=== PATIENT | female | born 1980 | race Caucasian/White ===

== ENCOUNTER 2020-11-09 12:21 | Observation (INO) ==
[2020-11-09] MEDS ORDERED: RINGER'S SOLUTION,LACTATED 1,000 ML IV PRN ×2 (12:58→15:18)
[2020-11-09 13:09] LABS: Urine Bilirubin 1 mg/dl (NEGATIVE); Urine Blood Negative /ul (NEGATIVE); Urine Ketone 5 mg/dL (NEGATIVE); Urine Nitrite Negative (NEGATIVE); Urine Protein 30 mg/dL (NEGATIVE); Urine Specific Gravity 1.025 SP.GR. (1.005-1.010); Urine pH 6.5 pH (5.0-7.0)
[2020-11-09 13:19] LABS: Urine Appearance Slightly Cloudy (CLEAR); Urine Bacteria 1+; Urine Color Dark Yellow; Urine RBC None Seen /hpf (0-5); Urine WBC TRACE /hpf (0-5)
[2020-11-09 13:28] LABS: Cocaine Ur Negative (NEGATIVE); Urine Barbiturate Negative (NEGATIVE); Urine Opiates Negative (NEGATIVE); Urine PCP Negative (NEGATIVE); Urine THC Negative (NEGATIVE)
[2020-11-09 13:30] VITALS: BP 126/87
[2020-11-09 13:30] LABS: Urine Benzodiazepines Positive (NEGATIVE)
[2020-11-09 14:30] LABS: Mean Cell Volume 84.9 fl (78-100); Mean Corpuscular Hemoglobin 27.4 pg (27-31); Mean Corpuscular Hgb Conc 32.3 g/dl (32-36); Mean Platelet Volume 10.5 fl (8-12.5); Neutrophil % 70.2 % (42-75.0); Platelet Count 245 K/mm3 (150-450); Red Blood Count 3.65 M/mm3 (4.2-5.4); Red Cell Distribution Width 17.2 % (11.5-14.0); White Blood Count 9.9 K/mm3 (4.0-10.5)
[2020-11-09 14:47] LABS: TSH * 1.525 uIU/mL (0.358-3.74)
[2020-11-09] MEDS ORDERED: RINGER'S SOLUTION,LACTATED 1,000 ML IV ONE (15:18)
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
[2020-11-09] MEDS ORDERED: BETAMETHASONE ACETATE,SOD PHOS 6 MG/ML VIAL IM STA (16:42)
[2020-11-09] MEDS ORDERED: DEXTROSE 5%-LACTATED RINGERS 1,000 ML IV PRN (16:47)
[2020-11-09] MEDS ORDERED: clonazePAM 1 MG TABLET PO PRN (16:49)
[2020-11-09] MEDS ORDERED: traZODone HCL 150 MG TABLET PO PRN (16:49)
--- NOTE | 2020-11-09 16:58 | PN ---
Progess Note - Interim Date: 11/09/20 Time: 16:51 Narrative: 11/09/20 16:51 Discussed with patient recommendations made by MFM NPO now Switch IVF to D5LR since the patient has not had anything to eat for 5 days COVID-19 test not indicated since the patient has had COVID within the last 3 months The patient is hypertensive in the mild range. Check CMP and UP:CR
[2020-11-09] MEDS ORDERED: PROPRANOLOL HCL 60 MG CAPSULE.SA PO SCH (17:00)
--- NOTE | 2020-11-09 17:07 | PN ---
Progess Note - Interim Date: 11/09/20 Time: 17:05 Narrative: 11/09/20 17:05 Betamethasone 12 mg IM administered should delivery occur
[2020-11-09 17:12] LABS: Albumin * 2.1 gm/dl (3.4-5.0); Anion Gap 13.1 mmol/L (6.8-13.8); BUN/Creatinine Ratio 4.9 (9.0-21.6); Bilirubin, Total 0.2 mg/dL (0.0-1.1); Ca. Corrected For Albumin 9.3 mg/dL (8.4-10.2); Calcium * 8.1 mg/dL (7.9-10.9); Carbon Dioxide 22.5 mmol/L (24-32.6); Potassium 2.6 mmol/L (3.4-4.6); Total Protein 5.4 gm/dL (6.2-8.2)
[2020-11-09 17:20] LABS: Random Urine Total Protein 80.5 mg/dL (0-12)
[2020-11-09] MEDS ORDERED: POTASSIUM CHLORIDE 20 MEQ TABLET.SA PO ONE (17:38)
[2020-11-09] MEDS: POTASSIUM CHLORIDE IN WATER 100 ML IV SCH ×4 (17:40→20:35)
--- NOTE | 2020-11-09 17:54 | CONS ---
HPI - General Date of Service: 11/09/20 Source: patient - History of Present Illness Initial Comments: Patient presented to the ED after not eating for several days. She is 38w1d , and hadn't felt the baby move for 3 days. She was diagnosed with COVID last month, and has recovered. She had vomiting and diarrhea at that time, but none in the last week. No recent med changes. Workup in the ED showed a potassium level of 2.6. She does not take diuretics. Low protein at 5.4, and low albumin at 2.1. Consulted for hypokalemia management. Allergies/Adverse Reactions: Allergies baclofen Allergy (Verified 11/09/20 12:40) Migraine Vomiting Home Medications: Home Medications Medication Instructions Recorded Last Taken levothyroxine 75 mcg capsule 75 mcg PO DAILY #30 cap 08/11/20 11/08/20 lisdexamfetamine 40 mg capsule 40 mg PO DAILY #30 cap 10/25/20 11/08/20 brexpiprazole 4 mg tablet 4 mg PO HS #30 tab 11/03/20 11/08/20 propranolol 60 mg capsule,24 See Rx Instructions .ROUTE 11/03/20 Unknown hr,extended release .COMPLEX #30 unknown measurement unit code: capsule Clonazepam 1 mg PO BID PRN 11/09/20 11/08/20 Vits96/Iron Fum/Folic 1 tab PO DAILY 11/09/20 Unknown [ S] blood sugar diagnostic See Rx Instructions .ROUTE 11/09/20 Unknown .MEDSUPPLY #100 ea blood-glucose meter See Rx Instructions .ROUTE 11/09/20 Unknown .MEDSUPPLY #1 ea lancets 28 gauge See Rx Instructions .ROUTE 11/09/20 Unknown .MEDSUPPLY #100 ea traZODone HCL [Trazodone HCl] 1 tab PO HS PRN 11/09/20 Unknown Medications - Medications Current Medications: Current Medications Lactated Ringer's (Lactated Ringers) 1,000 mls @ 999 mls/hr IV .Q1H1M PRN PRN Reason: HYDRATION Stop: 12/09/20 12:59 Last Infusion: 11/09/20 14:20 Dose: Infused Documented by: Dextrose/Lactated Ringer's (Dextrose 5%-Lr) 1,000 mls @ 125 mls/hr IV .Q8H PRN PRN Reason: HYDRATION Stop: 12/09/20 16:48 Last Admin: 11/09/20 16:50 Dose: 125 mls/hr Documented by: Propranolol HCl (Propranolol Hcl 60 Mg Capsule.Sa) 60 mg PO DAILY FREIDA Stop: 12/09/20 17:01 Last Admin: 11/09/20 17:01 Dose: Not Given Documented by: Review of Systems - Review of Systems Generalized/Overall Review: Absent: Fever Respiratory: Absent: Shortness of Breath Cardiac: Absent: Chest Pain, Edema Abdominal: Absent: Nausea, Vomiting, Abdominal Pain Genitourinary: Present: No Symptoms Reported Physical Examination - Exam Vital Signs: Vital Signs - Last Taken Temp 36.9 C 11/09/20 14:08 Pulse 91 11/09/20 12:40 Resp 16 11/09/20 12:40 BP 126/87 11/09/20 12:40 Pulse Ox 100 11/09/20 12:40 O2 Oxygen Delivery Method Room Air Constitutional: Present: Alert, Cooperative, No distress Respiratory: Present: normal breath sounds, no accessory muscle use Cardiovascular/Chest: Present: regular rate, rhythm Abdomen: Present: other - gravid Extremity: Absent: lower extremity edema Eye contact: Present: cooperative, good eye contact - Results and Findings: Lab/Microbiology results last 24 hrs: Abnormal/Pending Laboratory Last 24 HRS 11/09/20 11/09/20 11/09/20 14:16 14:16 14:16 RBC Hgb Hct RDW Immature Gran # (Auto) Neutrophils # Potassium 2.6 L D Carbon Dioxide 22.5 L BUN/Creatinine Ratio 4.9 L Random Glucose 171 H Glucose 1 Hr 50 gm 176 H Ferritin 5 L ALT 12 L Total Protein 5.4 L Albumin 2.1 L Urine Protein Urine Bilirubin Urine Urobilinogen Ur Leukocyte Esterase Urine WBC Ur Epithelial Cells Urine Bacteria Ur Random Creatinine U Random Total Protein Urine Amphetamine U Benzodiazepines Scrn 11/09/20 11/09/20 11/09/20 14:16 12:50 12:50 RBC 3.65 L Hgb 10.0 L Hct 31.0 L RDW 17.2 H Immature Gran # (Auto) 0.04 H Neutrophils # 7.0 H Potassium Carbon Dioxide BUN/Creatinine Ratio Random Glucose Glucose 1 Hr 50 gm Ferritin ALT Total Protein Albumin Urine Protein Urine Bilirubin Urine Urobilinogen Ur Leukocyte Esterase Urine WBC Ur Epithelial Cells Urine Bacteria Ur Random Creatinine 420.6 H U Random Total Protein 80.5 H Urine Amphetamine Positive H U Benzodiazepines Scrn Positive H 11/09/20 12:50 RBC Hgb Hct RDW Immature Gran # (Auto) Neutrophils # Potassium Carbon Dioxide BUN/Creatinine Ratio Random Glucose Glucose 1 Hr 50 gm Ferritin ALT Total Protein Albumin Urine Protein 30 H Urine Bilirubin 1 H Urine Urobilinogen 2.0 H Ur Leukocyte Esterase 25 H Urine WBC Trace H Ur Epithelial Cells >25 H Urine Bacteria 1+ H Ur Random Creatinine U Random Total Protein Urine Amphetamine U Benzodiazepines Scrn - Assessments/Findings (1) Hypokalemia Diagnosis(s): Potassium level of 2.6 today. She denies vomiting or diarrhea, and does not take diuretics. Likely source is recent poor po intake. Will administer 40 mEq IV KCl, and also 40 mEq dose of KDur. Will obtain EKG, and continue cardiac monitoring. She may be going for emergency later this evening. Will recheck her potassium in 2 hours. Problem: Acute
[2020-11-09 19:38] LABS: Anion Gap 8.3 mmol/L (6.8-13.8); BUN/Creatinine Ratio 1.8 (9.0-21.6); Calcium * 8.1 mg/dL (7.9-10.9); Carbon Dioxide 24.8 mmol/L (24-32.6); Estimated Creat Clear 137.4; Potassium 3.1 mmol/L (3.4-4.6)
[2020-11-09] MEDS ORDERED: BREXPIPRAZOLE 4 MG PO SCH (21:00)
--- NOTE | 2020-11-09 21:17 | DS ---
(1) 31 weeks gestation of Problem: Acute (2) Non-reactive NST (non-stress test) Problem: Acute (3) AMA (advanced maternal age) multigravida 35+ Problem: Acute Qualifiers: Trimester: third trimester Qualified Code(s): O09.523 - Supervision of elderly multigravida, third trimester (4) Rh(D) positive Problem: Acute (5) Normal Pap smear Problem: Acute (6) Attention deficit hyperactivity disorder Problem: Chronic Qualifiers: (7) Bipolar disorder Problem: Chronic Qualifiers: (8) Generalized anxiety disorder Problem: Chronic (9) Hypothyroid Problem: Chronic Qualifiers: Hypothyroidism type: acquired (10) History of 2019 novel coronavirus disease (COVID-19) Problem: Acute Date of Discharge:: 11/09/20 Hospital Course: Admitted for observation. BPP 06/25 but tracing still with minimal variability so patient transferred to [facility]. Procedures Performed: none Results and Findings: Lab Pending Results 11/09/20 12:50: Urine Color Dark yellow, Urine Appearance Slightly cloudy, Urine pH 6.5, Ur Specific [place] 1.025, Urine Protein 30 H, Urine Glucose (UA) Negative, Urine Ketones 5, Urine Blood Negative, Urine Nitrate Negative, Urine Bilirubin 1 H, Urine Urobilinogen 2.0 H, Ur Leukocyte Esterase 25 H, Urine RBC None seen, Urine WBC Trace H, Ur Epithelial Cells >25 H, Urine Bacteria 1+ H, Urine Culture Comments Culture to follow 11/09/20 12:50: Urine Opiates Screen Negative, Barbiturate Screen Negative, Ur Phencyclidine Scrn Negative, Urine Amphetamine Positive H, U Benzodiazepines Scrn Positive H, Urine Cocaine Screen Negative, Urine Marijuana (THC) Negative 11/09/20 12:50: Ur Random Creatinine 420.6 H, U Random Total Protein 80.5 H, U [place] Prot/Creat Ratio 191 11/09/20 14:16: WBC 9.9, RBC 3.65 L, Hgb 10.0 L, Hct 31.0 L, MCV 84.9, MCH 27.4, MCHC 32.3, RDW 17.2 H, Plt Count 245, MPV 10.5, Immature Gran % (Auto) 0.40, Immature Gran # (Auto) 0.04 H, Neutrophils % 70.2, Lymphocytes % 25.0, Monocytes % 3.2, Eosinophils % 1.0, Basophils % 0.2, Nucleated RBC % 0.0, Neutrophils # 7.0 H, Lymphocytes # 2.48, Monocytes # 0.3, Eosinophils # 0.1, Absolute Basophils 0.0 11/09/20 14:16: Glucose 1 Hr 50 gm 176 H, TSH 1.525 11/09/20 14:16: Ferritin 5 L 11/09/20 14:16: Sodium 138, Plasma Sodium 139, Potassium 2.6 L D, Chloride 105, Carbon Dioxide 22.5 L, Anion Gap 13.1, BUN 3 D, Creatinine 0.61, Est GFR (Non- Af Amer) 117 D, BUN/Creatinine Ratio 4.9 L, Random Glucose 171 H, Calcium 8.1, Calcium Adj for Albumin 9.3, Total Bilirubin 0.2, AST 14, ALT 12 L, Alkaline Phosphatase 110, Total Protein 5.4 L, Albumin 2.1 L 11/09/20 19:25: Sodium 137, Plasma Sodium 138, Potassium 3.1 L, Chloride 107 H, Carbon Dioxide 24.8, Anion Gap 8.3, BUN 1 L D, Creatinine 0.56, Est GFR (Non-Af Amer) 129, BUN/Creatinine Ratio 1.8 L, Random Glucose 148 H, Calcium 8.1 Disposition: Short Term Hospital Inpatient Condition: Stable Discharge Activity: Activity as tolerated Discharge Diet: General/regular food Referrals: Jovana Edwards DO [Primary Care Provider] - Complete Home Medications List: Complete Home Medication List: levothyroxine 75 mcg capsule 75 mcg PO DAILY #30 cap 08/11/20 lisdexamfetamine 40 mg capsule 40 mg PO DAILY #30 cap 10/25/20 brexpiprazole 4 mg tablet 4 mg PO HS #30 tab 11/03/20 propranolol 60 mg capsule,24 hr,extended release See Rx Instructions .ROUTE .COMPLEX #30 unknown measurement unit code: capsule 11/03/20 Clonazepam 1 mg PO BID PRN 11/09/20 Vits96/Iron Fum/Folic [ S] 1 tab PO DAILY 11/09/20 blood sugar diagnostic See Rx Instructions .ROUTE .MEDSUPPLY #100 ea 11/09/20 blood-glucose meter See Rx Instructions .ROUTE .MEDSUPPLY #1 ea 11/09/20 lancets 28 gauge See Rx Instructions .ROUTE .MEDSUPPLY #100 ea 11/09/20 traZODone HCL [Trazodone HCl] 1 tab PO HS PRN 11/09/20
[2020-11-10] MEDS ORDERED: LEVOTHYROXINE SODIUM 75 MCG TABLET PO SCH (07:00)
[2020-11-10] MEDS ORDERED: PRENATAL VITS96/IRON FUM/FOLIC 1 TAB TABLET PO SCH (09:00)
== END 2020-11-09 23:55 | disposition short-term general hospital (02) ==
LOC: ER 12:21 → OBCLINIC 12:30 → OB 12:30 → OBCLINIC 12:35
PROVIDERS: ADMIT Obstetrics & Gynecology; ATTEND Obstetrics & Gynecology
DX: Z3A.31 31 weeks gestation of pregnancy; D64.9 Anemia, unspecified; F90.9 Attention-deficit hyperactivity disorder, unspecified type; E87.6 Hypokalemia; O36.8130 Decreased fetal movements, third trimester, not applicable or unspecified; E03.9 Hypothyroidism, unspecified; F41.1 Generalized anxiety disorder; Z67.90 Unspecified blood type, Rh positive; Z86.19 Personal history of other infectious and parasitic diseases

== ENCOUNTER 2020-12-20 11:53 | Inpatient (IN) ==
[2020-12-20] MEDS ORDERED: ONDANSETRON 4 MG TAB.RAPDIS PO PRN (17:59)
[2020-12-20] MEDS ORDERED: BUTORPHANOL TARTRATE 2 MG/ML VIAL IV PRN ×2 (17:59)
[2020-12-20] MEDS ORDERED: MISOPROSTOL 100 MCG TABLET VG PRN (17:59)
[2020-12-20] MEDS ORDERED: RINGER'S SOLUTION,LACTATED 1,000 ML IV ONE (17:59)
[2020-12-20] MEDS ORDERED: LIDOCAINE HCL 50 ML VIAL PERI PRN (17:59)
[2020-12-20 18:56] LABS: Cocaine Ur Negative (NEGATIVE); Urine Barbiturate Negative (NEGATIVE); Urine Benzodiazepines Negative (NEGATIVE); Urine Opiates Negative (NEGATIVE); Urine PCP Negative (NEGATIVE); Urine THC Negative (NEGATIVE)
[2020-12-20] MEDS: ACETAMINOPHEN 325 MG TABLET PO PRN (19:49)
[2020-12-20 20:21] LABS: Albumin * 2.1 gm/dl (3.4-5.0); Anion Gap 12.5 mmol/L (6.8-13.8); BUN/Creatinine Ratio 4.4 (9.0-21.6); Bilirubin, Total 0.3 mg/dL (0.0-1.1); Ca. Corrected For Albumin 9.6 mg/dL (8.4-10.2); Calcium * 8.4 mg/dL (7.9-10.9); Carbon Dioxide 24.8 mmol/L (24-32.6); Potassium 3.3 mmol/L (3.4-4.6); Total Protein 5.6 gm/dL (6.2-8.2)
[2020-12-20] MEDS ORDERED: POTASSIUM CHLORIDE 20 MEQ TABLET.SA PO ONE (20:54)
[2020-12-20] MEDS: RINGER'S SOLUTION,LACTATED 1,000 ML IV PRN (21:02)
[2020-12-20 21:05] LABS: Random Urine Total Protein 37.1 mg/dL (0-12)
[2020-12-21] MEDS: OXYTOCIN/0.9 % SODIUM CHLORIDE 30 UNITS/500 ML BAG IV ONE (00:04)
[2020-12-21] MEDS: CALCIUM CARBONATE 500 MG TAB.CHEW PO PRN ×2 (00:04→07:39)
[2020-12-21] MEDS ORDERED: ONDANSETRON HCL/PF 2 MG/ML VIAL IV PRN (00:34)
[2020-12-21] MEDS ORDERED: NALOXONE HCL 1 MG/1 ML SYRG IV PRN (00:34)
[2020-12-21] MEDS ORDERED: BUPIVACAINE HCL/PF 30 ML VIAL EP SCH (00:45)
[2020-12-21] MEDS: RINGER'S SOLUTION,LACTATED 1,000 ML IV PRN ×3 (04:45→23:59)
[2020-12-21] MEDS ORDERED: hydrOXYzine PAMOATE 25 MG CAPSULE PO ONE (05:01)
[2020-12-21] MEDS ORDERED: hydrOXYzine PAMOATE 25 MG CAPSULE ONE (05:03)
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
--- NOTE | 2020-12-21 06:57 | ANES ---
Post Anesthesia Assessment - Vital Signs Vitals: Last Vital Signs Temp 36.5 C 12/20/20 18:45 Pulse 78 12/20/20 18:45 Resp 18 12/20/20 18:45 BP 142/91 H 12/20/20 18:45 Pulse Ox 99 12/20/20 18:45 Airway Patency: Normal - Mental Status Level Of Consciousness: Awake - N/V Assessment Nausea/Vomiting Presence: None Dehydration:: No
--- NOTE | 2020-12-21 06:57 | ANES ---
Anesthesia Procedure Note Procedure Note: ANESTHESIA PROCEDURE NOTE Date of Procedure: 12/21/2020. Time of procedure: 40. Performed by: Gerhard Rocha CRNA Registered Nurse Cardiac Telemetry: None. Preprocedure diagnosis: Active labor. Post procedure diagnosis: Same. Procedure: Insertion of labor epidural. Indications: The patient is a 40-year-old female in active labor requesting labor epidural for pain management. Findings: See below. Details of the procedure: The patient was placed in a sitting position. DuraPrep as well as Betadine swabs X3 was applied to the patient's back. Patient was then draped in a sterile fashion. Lidocaine 1% was infiltrated to the skin and subcutaneous tissues at the level of the L3-4 interspace. The epidural space was identified using a 18-gauge Tuohy needle with [id number] technique. Epidural catheter was inserted to a depth of 12 centimeters at skin. Negative test dose was elicited using 3 mL of 1.5% preservative-free lidocaine plus epinephrine 1 200,000. The epidural catheter was then taped and secured in place. A loading dose of 8 mL of 0.25% preservative-free bupivacaine was administered to the epidural catheter after negative aspiration for blood and CSF. EBL: Minimal. Fluids: N/A. Specimen: N/A. Post procedure condition: The patient tolerated the procedure well. No complications were noted. Thank you for this consultation. Gerhard Rocha CRNA
[2020-12-21] MEDS: ACETAMINOPHEN 325 MG TABLET PO PRN (07:39)
[2020-12-21] MEDS: BUPIVACAINE HCL/0.9 % NACL/PF 250 ML EP PRN ×2 (07:41→18:46)
[2020-12-21 07:52] LABS: Anion Gap 14.3 mmol/L (6.8-13.8); BUN/Creatinine Ratio 6.6 (9.0-21.6); Calcium * 8.1 mg/dL (7.9-10.9); Carbon Dioxide 22.5 mmol/L (24-32.6); Estimated Creat Clear 126.1; Potassium 3.8 mmol/L (3.4-4.6)
[2020-12-21] MEDS: diphenhydrAMINE HCL 50 MG/ML VIAL IV PRN ×2 (10:26→10:45)
[2020-12-21] MEDS: METOCLOPRAMIDE HCL 5 MG/ML VIAL IV PRN ×2 (10:26→10:45)
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
--- NOTE | 2020-12-21 20:02 | PN ---
Progess Note - Interim Date: 12/21/20 Time: 20: Narrative: 12/21/20 20:01 cvx 2/50/-2 AROM for a small amount of clear fluid FHT cat 1
[2020-12-22] MEDS: OXYTOCIN/0.9 % SODIUM CHLORIDE 30 UNITS/500 ML BAG IV ONE
--- NOTE | 2020-12-22 02:35 | OR ---
Operative Report - Dictated Report Narrative: Date of delivery: 12/22/20 Time of delivery: 210 Gender: male weight: 2547 grams APGARS: 07/27 Procedure: Description of the procedure: The patient progressed to complete dilation after rupture of membranes as well as pitocin administration. She delivered a viable male in KRISTINE presentation. A nuchal cord was noted which was loose and reduced prior to delivery of the shoulders. The shoulders delivered without any difficulty followed by the rest of the . Cord clamping was delayed for 60 seconds due to vigorous . The cord was clamped and cut. Cord blood was collected. A first degree perineal laceration was noted which was hemostatic and thus did not require repair. The placenta delivered by expression, intact, and without difficulty. Cytotec 1000 mcg given rectally due to uterine atony. Clots removed from just above the cervix but the uterus was not explored manually due to no further clots noted. The clots were approximately 50 mL. EBL: 350 mL Complications: none Specimens: cord blood, placenta History for Definition: * The number of deliveries resulting in a live the patient experienced prior to current hospitalization * The previous delivery of live twins or any live multiple gestation is considered one live event. *If primagravida or nulliparous is documented select zero for the number of previous live births. Live Events: 1
[2020-12-22] MEDS ORDERED: MISOPROSTOL 100 MCG TABLET RC ONE (02:40)
[2020-12-22] MEDS ORDERED: GLYCERIN/WITCH HAZEL LEAF 40 APPL BOX TP PRN (03:21)
[2020-12-22] MEDS ORDERED: BISACODYL 10 MG SUPP.RECT RC PRN (03:21)
[2020-12-22] MEDS ORDERED: HYDROcodone/ACETAMINOPHEN 1 EACH TABLET PO PRN (03:21)
[2020-12-22] MEDS ORDERED: OXYTOCIN/0.9 % SODIUM CHLORIDE 30 UNITS/500 ML BAG IV ONE (03:21)
[2020-12-22] MEDS ORDERED: HYDROCORTISONE 30 APPL TUBE TP PRN (03:21)
[2020-12-22] MEDS ORDERED: diphenhydrAMINE HCL 25 MG CAPSULE PO PRN (03:21)
[2020-12-22] MEDS ORDERED: BENZOCAINE/MENTHOL 81 SPRAY CAN TP PRN (03:21)
[2020-12-22] MEDS ORDERED: SENNOSIDES 8.6 MG TABLET PO PRN (03:21)
[2020-12-22] MEDS: HYDROcodone/ACETAMINOPHEN 1 EACH TABLET PO PRN ×2 (03:52→20:45)
[2020-12-22] MEDS ORDERED: MISOPROSTOL 200 MCG TABLET RC ONE (05:00)
[2020-12-22] MEDS: LEVOTHYROXINE SODIUM 75 MCG TABLET PO SCH (08:09)
[2020-12-22] MEDS: DOCUSATE SODIUM 100 MG CAPSULE PO SCH ×2 (08:10→21:29)
[2020-12-22] MEDS: PROPRANOLOL HCL 60 MG CAPSULE.SA PO SCH (08:10)
[2020-12-22] MEDS: IBUPROFEN 800 MG TABLET PO PRN (08:12)
[2020-12-22] MEDS: BREXPIPRAZOLE 4 MG PO SCH (21:29)
--- NOTE | 2020-12-23 07:33 | PN ---
Subjective - Date and Time Seen Date: 12/23/20 Time: 07:29 Subjective Narrative: Patient without complaints other than depression Objective Objective Narrative: See vital signs - Review of Systems Generalized/Overall Review: Reports: No Symptoms Reported Misc: All systems neg except as marked - Vitals Vitals: Last Vital Signs Temp 36.2 C 12/23/20 01:12 Pulse 72 12/23/20 01:12 Resp 18 12/23/20 01:12 BP 153/84 H 12/23/20 01:12 Pulse Ox 99 12/23/20 01:12 - Exam Constitutional: Present: Alert, Oriented x3, Cooperative, No distress ENT Exam: Present: hearing grossly normal Neck: Present: normal inspection Breasts: Present: Exam deferred Abdomen: Present: soft, nontender, nondistended Extremity: Present: non-tender, no calf tenderness Skin Exam: Present: normal color, warm/dry, no cyanosis Neurologic: Present: alert, normal mood/affect, oriented x 3 Appearance: Present: appropriate appearance, appropriate insight, neat, no memory impairment Eye contact: Present: cooperative, good eye contact, normal speech Thoughts: Present: normal thought pattern Cauti Physician Documentation - Urinary Catheter Management Urethral (Leroy) Urethral Indwelling: No Date of Insertion: 12/21/20 Time of Insertion: 07:40 Date of Removal: 12/22/20 Time of Removal: 02:00 Assessment/Plan Plan Narrative: PPD 1 s/p Doing well Discharge patient if baby cleared by Peds - Problems/Diagnosis (1) 37 weeks gestation of Problem: Acute (2) Hypokalemia Problem: Acute (3) Gestational hypertension Problem: Acute Qualifiers: Trimester: third trimester Qualified Code(s): O13.3 - Gestational [-induced] hypertension without significant proteinuria, third trimester (4) AMA (advanced maternal age) multigravida 35+ Problem: Acute Qualifiers: Trimester: third trimester Qualified Code(s): O09.523 - Supervision of elderly multigravida, third trimester (5) Rh(D) positive Problem: Acute (6) Normal Pap smear Problem: Acute (7) Hypothyroid Problem: Chronic Qualifiers: Hypothyroidism type: acquired (8) Oligohydramnios Problem: Acute Qualifiers: Trimester: third trimester (9) Uterine atony Problem: Acute
--- NOTE | 2020-12-23 07:39 | DS ---
OB Discharge Summary (1) 37 weeks gestation of Status: Acute (2) Hypokalemia Status: Acute (3) Gestational hypertension Status: Acute Qualifiers: Trimester: third trimester Qualified Code(s): O13.3 - Gestational [-induced] hypertension without significant proteinuria, third trimester (4) AMA (advanced maternal age) multigravida 35+ Status: Acute Qualifiers: Trimester: third trimester Qualified Code(s): O09.523 - Supervision of elderly multigravida, third trimester (5) Rh(D) positive Status: Acute (6) Normal Pap smear Status: Acute (7) Hypothyroid Status: Chronic Qualifiers: Hypothyroidism type: acquired (8) Oligohydramnios Status: Acute Qualifiers: Trimester: third trimester (9) Uterine atony Status: Acute Delivery Date: 12/22/20 Delivery Time: 02:11 :: 2 Para:: 2 Gestational weeks:: 37 Gestational days:: 2 Intrapartum Procedures: Spontaneous Vaginal Delivery Procedures: None /OP Complications: GHTN Discharge Diagnosis: Term -Delivered, Gestational Hypertension - Discharge Information Discharge Location: Home Disposition: Home self-care Activity on Discharge:: Activity as tolerated, Pelvic Rest Discharge Diet: General/regular food Complete Home Medications List: Complete Home Medication List: levothyroxine 75 mcg capsule 75 mcg PO DAILY #30 cap 08/11/20 brexpiprazole 4 mg tablet 4 mg PO HS #30 tab 11/03/20 propranolol 60 mg capsule,24 hr,extended release See Rx Instructions .ROUTE .COMPLEX #30 unknown measurement unit code: capsule 11/03/20 blood sugar diagnostic See Rx Instructions .ROUTE .MEDSUPPLY #100 ea 11/09/20 blood-glucose meter See Rx Instructions .ROUTE .MEDSUPPLY #1 ea 11/09/20 lancets 28 gauge See Rx Instructions .ROUTE .MEDSUPPLY #100 ea 11/09/20 lisdexamfetamine 40 mg capsule 40 mg PO DAILY #30 cap 12/05/20 - Plan Discharge to:: Home Comment:: Routine Discharge Instructions Follow up in office in:: Other - 4 weeks - Information Weight (Grams): 2,547 Infant Sex: Male Score 1 min: 9 Score 5 min: 9 Complications: Other - low amniotic fluid Other Complications: NC x 1
[2020-12-23] MEDS: PROPRANOLOL HCL 60 MG CAPSULE.SA PO SCH (08:35)
[2020-12-23] MEDS: clonazePAM 1 MG TABLET PO PRN ×3 (08:36→20:43)
[2020-12-23] MEDS: LEVOTHYROXINE SODIUM 75 MCG TABLET PO SCH (08:36)
[2020-12-23] MEDS: DOCUSATE SODIUM 100 MG CAPSULE PO SCH (10:20)
[2020-12-23] MEDS: IBUPROFEN 800 MG TABLET PO PRN (19:08)
[2020-12-23] MEDS: BREXPIPRAZOLE 4 MG PO SCH (20:43)
[2020-12-24] MEDS: DOCUSATE SODIUM 100 MG CAPSULE PO SCH ×3 (00:55→20:46)
--- NOTE | 2020-12-24 06:41 | PN ---
Subjective - Date and Time Seen Date: 12/24/20 Time: 06:40 Subjective Narrative: Patient without complaints other than depression Objective Objective Narrative: See vital signs - Review of Systems Generalized/Overall Review: Reports: No Symptoms Reported Misc: All systems neg except as marked - Vitals Vitals: Last Vital Signs Temp 36.9 C 12/24/20 00:15 Pulse 87 12/24/20 00:15 Resp 18 12/24/20 00:15 BP 120/67 12/24/20 00:15 Pulse Ox 98 12/24/20 00:15 - Exam Constitutional: Present: Alert, Oriented x3, Cooperative, No distress ENT Exam: Present: hearing grossly normal Abdomen: Present: soft, nontender, nondistended Extremity: Present: non-tender, no calf tenderness Skin Exam: Present: normal color, warm/dry, no cyanosis Neurologic: Present: alert, normal mood/affect, oriented x 3 Appearance: Present: appropriate appearance, appropriate insight, neat, no memory impairment Eye contact: Present: cooperative, good eye contact, normal speech Thoughts: Present: normal thought pattern Cauti Physician Documentation - Urinary Catheter Management Urethral (Leroy) Urethral Indwelling: No Date of Insertion: 12/21/20 Time of Insertion: 07:40 Date of Removal: 12/22/20 Time of Removal: 02:00 Assessment/Plan Plan Narrative: PPD 2 s/p Doing well Discharge today - Problems/Diagnosis (1) 37 weeks gestation of Problem: Acute (2) Hypokalemia Problem: Acute (3) Gestational hypertension Problem: Acute Qualifiers: Trimester: third trimester Qualified Code(s): O13.3 - Gestational [-induced] hypertension without significant proteinuria, third trimester (4) AMA (advanced maternal age) multigravida 35+ Problem: Acute Qualifiers: Trimester: third trimester Qualified Code(s): O09.523 - Supervision of elderly multigravida, third trimester (5) Rh(D) positive Problem: Acute (6) Normal Pap smear Problem: Acute (7) Hypothyroid Problem: Chronic Qualifiers: Hypothyroidism type: acquired (8) Uterine atony Problem: Acute
--- NOTE | 2020-12-24 06:42 | DS ---
OB Discharge Summary (1) 37 weeks gestation of Status: Acute (2) Hypokalemia Status: Acute (3) Gestational hypertension Status: Acute Qualifiers: Trimester: third trimester Qualified Code(s): O13.3 - Gestational [-induced] hypertension without significant proteinuria, third trimester (4) AMA (advanced maternal age) multigravida 35+ Status: Acute Qualifiers: Trimester: third trimester Qualified Code(s): O09.523 - Supervision of elderly multigravida, third trimester (5) Rh(D) positive Status: Acute (6) Normal Pap smear Status: Acute (7) Hypothyroid Status: Chronic Qualifiers: Hypothyroidism type: acquired (8) Uterine atony Status: Acute Delivery Date: 12/22/20 Delivery Time: 02:11 :: 2 Para:: 2 Gestational weeks:: 37 Gestational days:: 2 Intrapartum Procedures: Spontaneous Vaginal Delivery, Anesthesia - Epidural Procedures: None /OP Complications: GHTN Discharge Diagnosis: Term -Delivered, Gestational Hypertension, Other - low amniotic fluid - Discharge Information Discharge Location: Home Disposition: Home self-care Activity on Discharge:: Activity as tolerated, Pelvic Rest Discharge Diet: General/regular food Additional Patient Instructions (free text): Yolanda wick have an appointment with Dr. Lauren on January 19 at 2:30. Complete Home Medications List: Complete Home Medication List: levothyroxine 75 mcg capsule 75 mcg PO DAILY #30 cap 08/11/20 brexpiprazole 4 mg tablet 4 mg PO HS #30 tab 11/03/20 propranolol 60 mg capsule,24 hr,extended release See Rx Instructions .ROUTE .COMPLEX #30 unknown measurement unit code: capsule 11/03/20 lisdexamfetamine 40 mg capsule 40 mg PO DAILY #30 cap 12/05/20 Ibuprofen [Motrin] 800 mg PO Q6H PRN tab 12/23/20 Levothyroxine Sodium [Synthroid] 75 mcg PO DAILY@0700 tab 12/23/20 clonazePAM [Klonopin] 1 mg PO TID PRN tab 12/23/20 pregabalin 225 mg capsule 225 mg PO BID #60 cap 12/23/20 - Plan Discharge to:: Home Comment:: Routine Discharge Instructions Follow up in office in:: Other - 4 weeks - Information Weight (Grams): 2,547 Infant Sex: Male Score 1 min: 9 Score 5 min: 9 Infant Complications: Other - low amniotic fluid Other Complications: NC x 1
[2020-12-24] MEDS: LEVOTHYROXINE SODIUM 75 MCG TABLET PO SCH (08:55)
[2020-12-24] MEDS: PROPRANOLOL HCL 60 MG CAPSULE.SA PO SCH (08:55)
[2020-12-24] MEDS: clonazePAM 1 MG TABLET PO PRN ×3 (09:01→20:46)
[2020-12-24] MEDS: HYDROcodone/ACETAMINOPHEN 1 EACH TABLET PO PRN ×2 (18:53→22:05)
[2020-12-24] MEDS: IBUPROFEN 800 MG TABLET PO PRN (18:54)
[2020-12-24 20:08] VITALS: BP 133/75
[2020-12-24] MEDS: BREXPIPRAZOLE 4 MG PO SCH (20:46)
== END 2020-12-24 22:25 | disposition home or self-care (01) | DRG 806 ==
LOC: OB 17:47
PROVIDERS: ADMIT Obstetrics & Gynecology; ATTEND Obstetrics & Gynecology